=== PATIENT | female | born 1990 | race Caucasian/White ===

== ENCOUNTER 2018-12-31 00:37 | Emergency (ER) | payer OTHER ==
[~2018-12-31] VITALS: Ht 170.2 cm; Wt 87.5 kg
[2018-12-31] MEDS ORDERED: PRILOSEC 20 MG20 MG PO (01:00)
[2018-12-31] MEDS ORDERED: CARAFATE1 GM PO (01:00)
[2018-12-31 01:33] LABS: ABSOLUTE NEUTROPHILS 5.2 thou/uL (1.4-8.2); ANION GAP 10 mmol/L (7-16); BASOPHILS 0.5 % (0.0-2.0); BUN 9 mg/dL (7-18); CALCIUM 9.5 mg/dL (8.5-10.1); CHLORIDE 99 mmol/L (98-107); CO2 30 mmol/L (21-32); CREATININE 0.8 mg/dL (0.6-1.0); EOSINOPHILS 13.4 % (0.0-3.0); GLUCOSE 110 mg/dL (74-106); HEMATOCRIT 44.4 % (37.0-47.0); HEMOGLOBIN 15.1 gm/dL (12.0-15.0); MCH 32.1 pg (26.0-34.0); MCV 94.6 fL (80.0-100.0); PLATELET COUNT 191 thou/uL (150-400); POLYS 50.1 % (36.0-66.0); POTASSIUM 3.4 mmol/L (3.5-5.1); RBC 4.69 mil/uL (4.20-5.00); RDW 13.4 % (10.5-14.5); SODIUM 139 mmol/L (136-145); WBC 10.4 thou/uL (4.0-11.0)
[2018-12-31 01:36] LABS: URINE BILIRUBIN NEGATIVE (Negative); URINE BLOOD NEGATIVE (Negative); URINE CLARITY CLEAR; URINE COLOR YELLOW; URINE GLUCOSE-RANDOM* NEGATIVE (Negative); URINE KETONES NEGATIVE (Negative); URINE LEUKOCYTES-REFLEX NEGATIVE (Negative); URINE NITRITE-REFLEX NEGATIVE (Negative); URINE PROTEIN (DIPSTICK) NEGATIVE (Negative); URINE SPECIFIC GRAVITY 1.025 (1.005-1.035); URINE UROBILINOGEN 0.2 E.U./dl (0.2-1.0)
[2018-12-31 01:40] LABS: ALBUMIN 4.3 g/dL (3.4-5.0); DIRECT BILIRUBIN < 0.1 mg/dL (<0.1-0.3); LIPASE 124 U/L (73-393); SGOT 13 U/L (15-37); SGPT 26 U/L (30-65); TOTAL BILIRUBIN 0.1 mg/dL (<0.1-1.0); TOTAL PROTEIN 8.2 g/dL (6.4-8.2)
[2018-12-31] MEDS ORDERED: BENTYL 20 MG TA20 M1 PO (03:18)
[2018-12-31] MEDS ORDERED: NORCO 5-325 TA1 EACH PO (03:18)
[2018-12-31 03:29] VITALS: BP 123/90
== END 2018-12-31 03:41 | disposition home or self-care (01) ==
LOC: ER 00:37
PROVIDERS: Emergency Medicine
DX: R10.13 Epigastric pain (principal); I10 Essential (primary) hypertension; R35.0 Frequency of micturition; Z90.49 Acquired absence of other specified parts of digestive tract

== ENCOUNTER 2019-04-01 11:52 | Emergency (ER) | payer OTHER ==
[~2019-04-01] VITALS: Ht 172.7 cm; Wt 65.8 kg
[~2019-04-01 11:52] MED LIST: BENTYL 20 MG TA20 M1 PO; CARAFATE1 GM PO; NORCO 5-325 TA1 EACH PO; PRILOSEC 20 MG20 MG PO
[2019-04-01 12:56] LABS: URINE BILIRUBIN NEGATIVE (Negative); URINE BLOOD NEGATIVE (Negative); URINE CLARITY CLEAR; URINE COLOR YELLOW; URINE GLUCOSE-RANDOM* NEGATIVE (Negative); URINE KETONES NEGATIVE (Negative); URINE LEUKOCYTES-REFLEX NEGATIVE (Negative); URINE NITRITE-REFLEX NEGATIVE (Negative); URINE PROTEIN (DIPSTICK) NEGATIVE (Negative); URINE UROBILINOGEN 0.2 E.U./dl (0.2-1.0)
[2019-04-01] MEDS ORDERED: NOHOMEMEDICATIONS (13:16)
[2019-04-01 13:19] LABS: ABSOLUTE NEUTROPHILS 4.6 thou/uL (1.4-8.2); BASOPHILS 0.3 % (0.0-2.0); HEMATOCRIT 38.5 % (37.0-47.0); LYMPHOCYTES 13.8 % (24.0-44.0); MCH 31.8 pg (26.0-34.0); MCHC 33.7 g/dL (28.0-37.0); MCV 94.4 fL (80.0-100.0); MONOCYTES 11.8 % (1.0-8.0); POLYS 74.1 % (36.0-66.0); RBC 4.08 mil/uL (4.20-5.00); RDW 13.3 % (10.5-14.5); WBC 6.2 thou/uL (4.0-11.0)
[2019-04-01 13:26] LABS: CALCIUM 8.3 mg/dL (8.5-10.1); CREATININE 0.7 mg/dL (0.6-1.0); POTASSIUM 4.2 mmol/L (3.5-5.1)
[2019-04-01 13:45] LABS: PLATELET COUNT 276 thou/uL (150-400)
[2019-04-01] MEDS ORDERED: IBUPROFEN 600600 M1 PO (13:51)
[2019-04-01] MEDS ORDERED: ONDANSETRON HCL4 M2 PO (13:51)
[2019-04-01 14:47] VITALS: BP 115/77
== END 2019-04-01 14:55 | disposition home or self-care (01) ==
LOC: ER 11:52
PROVIDERS: Nurse Practitioner Family
DX: B34.9 Viral infection, unspecified (principal); I10 Essential (primary) hypertension

== ENCOUNTER 2019-04-04 14:39 | Emergency (ER) | payer OTHER ==
[~2019-04-04] VITALS: Ht 170.2 cm; Wt 87.5 kg
--- NOTE | ~2019-04-04 | HC ---
[facility] [place] [address] CONSULTATION Name: LAKECANDYEDGAR PAEZ Room #: DEP MCarol#: [id number] Admission: 04/04/19 ������������������ Attend Phys: Discharge: 04/04/19 ������������������ Date of : 86 Report #: [id number] THIS REPORT FOR: //name// CC: OSCAR ch Maddy Butler DATE OF SERVICE: 04/04/2019 REASON FOR CONSULTATION: Headache, sore throat. HISTORY OF PRESENT ILLNESS: The patient is a 28-year-old female who states that last Friday, she noted onset of a headache located in the frontal and parietal areas along with some generalized odynophagia and malaise. This worsened over the following 48 hours; however, she started to feel better on Friday, she was able to go to the gym and workout. Since Friday, she has noted her symptom complex to be persistent and not improving. The main symptom complaints are of generalized odynophagia, reported history of fever at home. Headache, especially worse on the right side involving the frontoparietal occipital area; abdominal pain, which has improved; malaise and myalgias, which also have improved. Her main reason for presenting to the hospital today was because her headache was not improving. She has not had previous headache history or migraine history. She has denied any phono or photophobia with the headaches. It should be noted she had her tonsils and adenoids removed at a young age, probably for recurrent tonsillitis based on her recollection. Presently, she denies any dysphagia. She denies any dyspnea, postnasal drainage, rhinorrhea, trismus, otalgia, neck stiffness, or neck discomfort. She has been taking either Tylenol or Motrin for the headaches without good improvements. She had been seen in the Emergency Room earlier this week where she had a negative strep both rapid and 3D culture and a negative Monospot test. She had been sent home at that time with ondansetron and ibuprofen. PAST MEDICAL AND SURGICAL HISTORY: Notable for adenotonsillectomy, laparoscopic cholecystectomy, and childbirth. FAMILY HISTORY: Noncontributory. REVIEW OF SYSTEMS: Otherwise, negative for any cardiovascular or pulmonary complaints at this time. She does not feel dyspneic. She has noticed slight raspiness to her voice. PHYSICAL EXAMINATION: VITAL SIGNS: Reviewed. She is afebrile, normotensive, not tachycardic, previous evaluation of her vitals, the last visit was normal as well. PHYSICAL EXAMINATION: She was examined in the Emergency Room [place] [facility]. She was alert, oriented, and cooperative throughout the examination. She did not appear [address] [address] CONSULTATION Name: LAKECANDY PHILIPPE Room #: DEP Ru#: [id number] Admission: 04/04/19 ������������������ Attend Phys: Discharge: 04/04/19 ������������������ Date of : 86 Report #: [id number] in any distress. Her voice could be described as slightly muffled, but not hot potato or hoarse at all. She was able to talk and breathe without difficulty. She is controlling her secretions quite well. Examination of her nares reveals no inflammation of the nasal passages. The turbinates not inflamed. Oral cavity shows excellent hydration, good dentition without any sign of gingival inflammation or carries. Floor of mouth is normal. Tongue is normal. Oropharynx shows an absence of the tonsils. The soft palate appears unremarkable. There is some mild erythema of the posterior pharyngeal wall. Palpation of the posterior pharyngeal wall does not reveal any palpable fluid collection by digital palpation. Palpation of her neck does not reveal any palpable lymphadenopathy in the anterior triangle of the neck or posterior triangle of the neck. There is no point tenderness in palpating her neck. Her larynx was in midline. There is no subcutaneous air within the neck. LABORATORY TESTS: Today reveal normal white count without shift. Her previous white count was also without shift. Remainder of her laboratory tests are unremarkable. Flexible laryngoscopy was performed after anesthetizing the nares with Pontocaine anesthesia and waiting several minutes, the scope was advanced through the nares, nasal cavity, nasopharynx, oropharynx, and hypopharynx. Examination shows that the nasal cavity appears unremarkable without obstruction. The nasal mucosa is normal. There is no inflammation of the nasal mucosa or sign of turbinate enlargement or masses. The nasopharynx shows a surgical absence of adenoid tissue with some scarring in the midline. The lateral and posterior pharyngeal frances are slightly erythematous, but without any obvious bulging. Her base of tongue is unremarkable. The epiglottis was without any swelling. Vallecula appears unremarkable. The postcricoid space appears normal. Airway is patent. Both vocal cords were clearly visualized. The scope was withdrawn. She tolerated the procedure well. I have reviewed her CT scan personally. The CT scan demonstrates no evidence of lymphadenopathy. 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 ASSESSMENT: History of headache, generalized odynophagia without a shift in white count, with examination not showing any unilateral swelling of the posterior pharyngeal wall and without any neck rigidity, dysphagia, or dyspnea. My suspicion at this time would be more inflammatory changes to the posterior pharyngeal soft tissues as opposed an abscess formation, which pharyngeal abscess is typically or unilateral as the midline raphe prevents it from spreading from side to side, unlike was found on the CT scan today. Prevertebral abscess usually would be very uncommon without some type of trauma to the area or without some neck rigidity and more significant dysphagia or dysphonia and dyspnea. Given the lack of progression of symptoms and the lack [facility] [address] [place] [address] CONSULTATION Name: CANDY BETHEA Room #: DEP Ru#: [id number] Admission: 04/04/19 ������������������ Attend Phys: Discharge: 04/04/19 ������������������ Date of : 86 Report #: [id number] of other corroborating findings, recommended treating her with oral clindamycin to cover staph and strep, 300 mg t.i.d. for a 10-day course with meals along with a tapering dose of steroids for the next 5 days and [place] for pain control. She will stay well hydrated. I discussed with her and her , warning signs to return to Emergency Room if she has any increasing symptoms of fever, dyspnea, dysphonia, worsening odynophagia, and inability to tolerate secretions or fluids. It should be noted she received 3 grams Unasyn and 20 mg of Decadron here in the ER prior to dismissal. Questions were answered and explained to the patient. He voluntarily understands everything. ��������������������������������������������� ���������������������������������������� By: ��������������������������������������������� [id number] John Lua MD /mark
[~2019-04-04 14:39] MED LIST changes: +IBUPROFEN 600600 M1 PO; +NOHOMEMEDICATIONS; +ONDANSETRON HCL4 M2 PO
[2019-04-04 17:48] LABS: ABSOLUTE NEUTROPHILS 5.8 thou/uL (1.4-8.2); BASOPHILS 0.4 % (0.0-2.0); EOSINOPHILS 0.1 % (0.0-3.0); HEMATOCRIT 37.3 % (37.0-47.0); HEMOGLOBIN 12.5 gm/dL (12.0-15.0); LYMPHOCYTES 17.8 % (24.0-44.0); MCH 31.4 pg (26.0-34.0); MCHC 33.6 g/dL (28.0-37.0); MCV 93.7 fL (80.0-100.0); MONOCYTES 8.4 % (1.0-8.0); PLATELET COUNT 136 thou/uL (150-400); POLYS 73.3 % (36.0-66.0); RBC 3.98 mil/uL (4.20-5.00); RDW 13.5 % (10.5-14.5); WBC 7.9 thou/uL (4.0-11.0)
[2019-04-04 17:51] LABS: CALCIUM 9.1 mg/dL (8.5-10.1); CREATININE 0.8 mg/dL (0.6-1.0)
[2019-04-04] MEDS ORDERED: NORCO 5-325 TA1 EAC1 PO (21:05)
[2019-04-04] MEDS ORDERED: CLEOCIN HCL150 MG PO (21:05)
[2019-04-04] MEDS ORDERED: PREDNISONE 20 M20 MG PO (21:05)
[2019-04-04 21:28] VITALS: BP 123/74
== END 2019-04-04 21:28 | disposition home or self-care (01) ==
LOC: ER 14:39
PROVIDERS: Nurse Practitioner Family
DX: J02.9 Acute pharyngitis, unspecified (principal); I10 Essential (primary) hypertension; Z90.49 Acquired absence of other specified parts of digestive tract